=== PATIENT | male | born 1935 | race Caucasian/White ===

== ENCOUNTER 2019-05-27 11:19 | Emergency (ER) | payer OTHER ==
[~2019-05-27] VITALS: Ht 172.7 cm; Wt 83.0 kg
[2019-05-27 15:16] VITALS: BP 154/67
== END 2019-05-27 15:16 | disposition home or self-care (01) ==
LOC: ED 11:19
DX: S61.211A Laceration without foreign body of left index finger without damage to nail, initial encounter (principal); I10 Essential (primary) hypertension; W54.0XXA Bitten by dog, initial encounter; Y93.89 Activity, other specified; Y92.89 Other specified places as the place of occurrence of the external cause; Y99.8 Other external cause status
CPT/HCPCS: 90715; J2001